=== PATIENT | male | born 1965 | race Caucasian/White ===

== ENCOUNTER → 2017-02-23 | Outpatient (REF) | payer BC ==
[2017-02-23 20:01] LABS: THYROID PEROXIDASE ANTIBODY > 1300.0 U/ML (<60.0)
== END ==
LOC: M LABDRAW1 16:37
PROVIDERS: ATTEND Internal Medicine Endocrinology, Diabetes & Metabolism
DX: E03.9 Hypothyroidism, unspecified (principal)

== ENCOUNTER → 2017-03-10 | Outpatient (CLI) | payer BC ==
--- NOTE | 2017-03-11 15:00 | REP ---
THYROID NUCLEAR SCINTIGRAPHY WITH 24 UPTAKE VALUE: HISTORY: Hypothyroidism. TECHNIQUE: 315 microcuries of I123 sodium iodide is ingested and 24-hour uptake values acquired and functional images are acquired. FINDINGS: The 24-hour uptake value is low and 15.9% (25-35%). Functional images demonstrate no cold or warm nodule. The right lobe is slightly larger than left. IMPRESSION: Normal scan images. No cold or warm nodule seen. Decreased 24-hour thyroid uptake. Signed by Jayesh Castillo MD 03/11/2017 04:40 P
== END ==
LOC: M RAD 13:37
PROVIDERS: ATTEND Internal Medicine Endocrinology, Diabetes & Metabolism
DX: E03.9 Hypothyroidism, unspecified (principal)

== ENCOUNTER → 2019-08-21 | Outpatient (REF) | payer BC | LOC: M LAB REF 17:14 | PROVIDERS: ATTEND Family Medicine | DX: E07.9 Disorder of thyroid, unspecified (principal) ==

== ENCOUNTER → 2020-03-04 | Outpatient (REF) | payer OTHER | LOC: M LAB REF 12:08 | PROVIDERS: ATTEND Family Medicine | DX: E07.9 Disorder of thyroid, unspecified (principal) ==

== ENCOUNTER → 2022-05-03 | Outpatient (REF) | payer OTHER | LOC: M LAB REF 16:13 | PROVIDERS: ATTEND Family Medicine | DX: E07.9 Disorder of thyroid, unspecified (principal) ==

== ENCOUNTER → 2022-09-08 | Outpatient (REF) | payer OTHER | LOC: M LAB REF 12:20 | PROVIDERS: ATTEND Family Medicine | DX: E07.9 Disorder of thyroid, unspecified (principal) ==

== ENCOUNTER → 2022-09-29 | Outpatient (CLI) | payer BC, OTHER ==
[2022-09-29 13:44] LABS: FREE T4 5.32 NG/DL (0.89-1.76)
[2022-09-29 13:45] LABS: THYROID STIMULATING HORMONE 0.008 uIU/ML (0.55-4.78); TOTAL T3 501.4 NG/DL (60.0-181.0)
[2022-09-29 13:48] LABS: THYROID PEROXIDASE ANTIBODY > 1300.0 U/ML (<60.0)
== END ==
LOC: M LAB 12:07
PROVIDERS: ATTEND Nurse Practitioner Family
DX: E05.00 Thyrotoxicosis with diffuse goiter without thyrotoxic crisis or storm (principal)

== ENCOUNTER → 2022-10-12 | Outpatient (CLI) | payer BC, OTHER | LOC: M RAD 13:32 | PROVIDERS: ATTEND Nurse Practitioner Family | DX: E05.00 Thyrotoxicosis with diffuse goiter without thyrotoxic crisis or storm (principal) | CPT/HCPCS: 78012; A9516 ==

== ENCOUNTER → 2022-11-26 | Outpatient (CLI) | payer BC, OTHER | LOC: M RAD 11:32 | PROVIDERS: ATTEND Internal Medicine Endocrinology, Diabetes & Metabolism | DX: E05.00 Thyrotoxicosis with diffuse goiter without thyrotoxic crisis or storm (principal) | CPT/HCPCS: 79005; A9517 ==

== ENCOUNTER → 2023-02-02 | Outpatient (CLI) | payer BC, OTHER ==
[2023-02-02 09:07] LABS: FREE T4 0.51 NG/DL (0.89-1.76); THYROID STIMULATING HORMONE 0.282 uIU/ML (0.55-4.78)
== END ==
LOC: M LAB 08:00
PROVIDERS: ATTEND Internal Medicine Endocrinology, Diabetes & Metabolism
DX: E05.00 Thyrotoxicosis with diffuse goiter without thyrotoxic crisis or storm (principal)

== ENCOUNTER → 2023-03-30 | Outpatient (CLI) | payer BC, OTHER ==
[2023-03-30 13:24] LABS: FREE T4 1.33 NG/DL (0.89-1.76); THYROID STIMULATING HORMONE 0.208 uIU/ML (0.55-4.78)
== END ==
LOC: M LAB 12:16
PROVIDERS: ATTEND Internal Medicine Endocrinology, Diabetes & Metabolism
DX: E89.0 Postprocedural hypothyroidism (principal)

== ENCOUNTER → 2023-07-06 | Outpatient (CLI) | payer BC, OTHER ==
[2023-07-06 14:00] LABS: FREE T4 1.38 NG/DL (0.89-1.76); THYROID STIMULATING HORMONE 1.063 uIU/ML (0.55-4.78)
== END ==
LOC: M LAB 12:56
PROVIDERS: ATTEND Internal Medicine
DX: E89.0 Postprocedural hypothyroidism (principal)

== ENCOUNTER → 2023-12-30 | Outpatient (CLI) | payer BC ==
[2023-12-30 10:00] LABS: THYROID STIMULATING HORMONE 0.697 uIU/ML (0.55-4.78)
[2023-12-30 10:01] LABS: FREE T4 1.59 NG/DL (0.89-1.76)
== END ==
LOC: M LAB 08:36
PROVIDERS: ATTEND Nurse Practitioner Family
DX: E89.0 Postprocedural hypothyroidism (principal)

== ENCOUNTER → 2024-11-14 | Outpatient (CLI) | payer BC | LOC: M RAD 10:16 | PROVIDERS: ATTEND Family Medicine | DX: R06.02 Shortness of breath (principal); I51.7 Cardiomegaly ==

== ENCOUNTER → 2025-04-30 | Outpatient (CLI) | payer BC | LOC: M SLEEP 20:00 | PROVIDERS: ATTEND Physician Assistant | DX: G47.33 Obstructive sleep apnea (adult) (pediatric) (principal) ==